=== PATIENT | male | born 1995 | race Caucasian/White ===

== ENCOUNTER 2017-07-20 01:34 | Emergency (ER) | payer OTHER ==
[2017-07-20 01:41] VITALS: TEMP 98.8
[2017-07-20] MEDS ORDERED: SKIN ADHESIVE (DERMABOND) 1 EACH TP ONE ×2 (03:09→04:07)
[2017-07-20] MEDS ORDERED: PENICILLIN VK 250MG PREPACK#6 BTL TAKEHOME ONE (04:19)
[2017-07-20] MEDS ORDERED: PENICILLIN VK 500 MG TAB PO ONE (04:19)
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
[2017-07-20 04:37] VITALS: BP 120/71; PULSE 101; RESP 16; O2SAT 93
== END 2017-07-20 04:37 | disposition home or self-care (01) ==
PROC: 0CQ1XZZ Repair Lower Lip, External Approach (ICD-10-PCS; principal; 2017-07-20)
DX: S03.2XXA Dislocation of tooth, initial encounter (principal); S01.511A Laceration without foreign body of lip, initial encounter; Y04.0XXA Assault by unarmed brawl or fight, initial encounter; Y99.8 Other external cause status